=== PATIENT | female | born 1945 | race Caucasian/White ===

== ENCOUNTER 2022-04-30 14:33 | Inpatient (IN) ==
[2022-04-30 16:54] LABS: Basophils % 0.5 % (0.0-0.8); Eosinophils % 2.1 % (0.00-10.9); Hematocrit 25.2 VOL% (35.7-47.0); Immature Granulocytes % 1.6 %; Immature Granulocytes Absolute 0.03 #; Lymphocytes # 0.6 10*3/uL (1.4-4.0); Mean Corpuscular HGB Conc 31.7 GM/DL (32-36); Mean Corpuscular Volume 96.2 FL (87-102); Mean Platelet Volume 9.9 FL (9.6-12.0); Monocytes # 0.2 10*3/uL (0.11-0.8); Neutrophils % 56.8 % (38.7-73.9); Platelet Count 54 T/CUMM (130-400); Red Blood Count 2.62 MC/CUMM (3.8-5.5); White Blood Count 1.9 T/CUMM (4-12)
[2022-04-30 17:16] LABS: INR 1.1; PT Patient Result 11.8 SECS (10.1-12.1)
[2022-04-30] MEDS ORDERED: SIMETHICONE CHEW 125 MG TABLET PO PRN (17:18)
[2022-04-30] MEDS ORDERED: LACTULOSE 20 GM/30 ML UDCUP PO PRN (17:18)
[2022-04-30] MEDS ORDERED: ACETAMINOPHEN 325 MG TABLET PO PRN (17:18)
[2022-04-30] MEDS ORDERED: ALBUTEROL 2.5 MG/3 ML NEB RESP TX PRN (17:18)
[2022-04-30] MEDS ORDERED: ONDANSETRON 4 MG/2 ML VIAL IV PRN (17:18)
[2022-04-30] MEDS ORDERED: CALCIUM CARBONATE CHEW 500 MG TABLET PO PRN (17:18)
[2022-04-30] MEDS ORDERED: ALUMINUM/MAGNES/SIMETH MAX STR 30 ML UDCUP PO PRN (17:18)
[2022-04-30 17:38] LABS: Albumin 2.5 G/DL (3.4-5.0); Bilirubin,Total 1.8 MG/DL (0.20-1.00); Calcium 8.5 MG/DL (8.5-10.1); Total Protein 5.9 G/DL (6.4-8.2)
[2022-04-30 17:44] LABS: % Iron Saturation 34.3 % (18-50)
[2022-04-30 18:09] LABS: Folate 12.14 NG/ML (5.38-24.0)
[2022-04-30 18:28] LABS: Band Neutrophils 1 % (0-10); Eosinophils 1 % (0-10); Lymphocytes 35 % (20-55); Total Cells Counted 100
[2022-04-30 18:30] LABS: Anisocytosis Slight
[2022-04-30 18:31] LABS: Platelet Estimate Decreased
[2022-04-30] MEDS ORDERED: OCTREOTIDE 100 MCG/ML SYRINGE IV STA (18:33)
[2022-04-30 19:55] LABS: Hematocrit 24.3 VOL% (35.7-47.0); Hemoglobin 7.5 GM/DL (12.0-16.0)
[2022-04-30] MEDS: PANTOPRAZOLE 40 MG VIAL IV SCH (20:31)
[2022-04-30] MEDS: OCTREOTIDE 500 MCG in SODIUM CHLORIDE 0.9% 100 ML IV SCH (20:31)
[2022-04-30] MEDS: SODIUM CHLORIDE 0.9% 1,000 ML IV SCH (20:31)
[2022-05-01 00:49] LABS: Hematocrit 23.1 VOL% (35.7-47.0); Hemoglobin 7.1 GM/DL (12.0-16.0)
[2022-05-01 05:58] LABS: Hematocrit 23.3 VOL% (35.7-47.0); Hemoglobin 6.9 GM/DL (12.0-16.0)
[2022-05-01] MEDS ORDERED: SODIUM CHLORIDE 0.9% 1,000 ML IV PRN (06:04)
[2022-05-01] MEDS: OCTREOTIDE 500 MCG in SODIUM CHLORIDE 0.9% 100 ML IV SCH ×2 (06:24→16:20)
[2022-05-01 06:28] LABS: Calcium 8.2 MG/DL (8.5-10.1); Osmolality,Calculated 297.7 MOS/KG (273-304); Potassium 5.3 MMOL/L (3.5-5.1); Risk Ratio 3.11; Thyroid Stimulating Hormone 0.068 uIU/ml (0.358-3.74); VLDL Cholesterol 15.8 MG/DL
[2022-05-01 07:31] LABS: Free T4 (Free Thyroxine) 1.9 NG/DL (0.76-1.46)
[2022-05-01 07:54] LABS: Hepatitis B Core IgM Quant 0.05 Index; Hepatitis B Surface Ag Quant < 0.10 Index; Hepatitis B Surface Ag Result Non-Reactive (NonReactive); Hepatitis C Virus Ab Quant < 0.02 Index; Hepatitis C Virus Ab Result Non-Reactive (NonReactive)
[2022-05-01 07:55] LABS: AFP Tumor < 2.2 NG/ML (0-8)
[2022-05-01] MEDS ORDERED: PANTOPRAZOLE 40 MG VIAL IV SCH (09:00)
[2022-05-01] MEDS: SODIUM ZIRCONIUM CYCLOSILICATE 10 GM PACK PO SCH ×3 (09:58→21:30)
[2022-05-01] MEDS: LACTULOSE 20 GM/30 ML UDCUP PO SCH ×3 (09:58→21:29)
[2022-05-01] MEDS: PANTOPRAZOLE 40 MG VIAL IV SCH ×2 (10:03→21:30)
[2022-05-01] MEDS: SODIUM CHLORIDE 0.9% 1,000 ML IV SCH ×2 (10:04→23:30)
[2022-05-01] MEDS: ursodioL 300 MG CAPSULE PO SCH ×2 (16:15→21:33)
[2022-05-01] MEDS: carvediloL 6.25 MG TABLET PO SCH (16:29)
[2022-05-01 17:32] LABS: Hematocrit 31.1 VOL% (35.7-47.0); Hemoglobin 9.8 GM/DL (12.0-16.0)
[2022-05-01] MEDS: FLUTICASONE/SALMETEROL 250-50 DISKUS 14 DOSE INH SCH (21:30)
[2022-05-02] MEDS: OCTREOTIDE 500 MCG in SODIUM CHLORIDE 0.9% 100 ML IV SCH ×2 (01:54→15:42)
[2022-05-02 05:07] LABS: INR 1.2; PT Patient Result 12.8 SECS (10.1-12.1); Partial Thromboplastin Time 28.3 SECS (23.7-32.9)
[2022-05-02 05:27] LABS: Calcium 7.9 MG/DL (8.5-10.1); Osmolality,Calculated 294.8 MOS/KG (273-304); Potassium 4.5 MMOL/L (3.5-5.1)
[2022-05-02] MEDS: LEVOTHYROXINE 100 MCG TABLET PO SCH (07:10)
[2022-05-02 07:36] LABS: Basophils % 0.9 % (0.0-0.8); Eosinophils # 0.1 10*3/uL (0.0-0.87); Eosinophils % 3.1 % (0.00-10.9); Hematocrit 28.5 VOL% (35.7-47.0); Hemoglobin 8.9 GM/DL (12.0-16.0); Immature Granulocytes % 0.4 %; Immature Granulocytes Absolute 0.01 #; Lymphocytes # 0.7 10*3/uL (1.4-4.0); Lymphocytes % 28.9 % (21.3-54.2); Mean Corpuscular HGB Conc 31.2 GM/DL (32-36); Mean Corpuscular Volume 96.3 FL (87-102); Mean Platelet Volume 10.4 FL (9.6-12.0); Monocytes # 0.2 10*3/uL (0.11-0.8); Monocytes % 8.9 % (1.7-12.7); Neutrophils % 57.8 % (38.7-73.9); Red Blood Count 2.96 MC/CUMM (3.8-5.5); Red Cell Distribution Width 19.9 % (9.3-17.3); White Blood Count 2.3 T/CUMM (4-12)
[2022-05-02 07:37] LABS: Platelet Count 59 T/CUMM (130-400)
[2022-05-02 08:10] LABS: Anisocytosis 2+; Burr Cells Few; Platelet Estimate Decreased
[2022-05-02] MEDS: SODIUM CHLORIDE 0.9% 1,000 ML IV SCH (08:59)
[2022-05-02] MEDS ORDERED: LEVOTHYROXINE 112 MCG TABLET PO SCH (09:00)
[2022-05-02] MEDS ORDERED: ALBUTEROL 2.5 MG/3 ML NEB RESP TX ONE (09:28)
[2022-05-02] MEDS: LACTULOSE 20 GM/30 ML UDCUP PO SCH ×3 (10:24→22:21)
[2022-05-02] MEDS: carvediloL 6.25 MG TABLET PO SCH (10:29)
[2022-05-02] MEDS: SODIUM ZIRCONIUM CYCLOSILICATE 10 GM PACK PO SCH ×4 (10:29→22:21)
[2022-05-02] MEDS: ursodioL 300 MG CAPSULE PO SCH ×4 (10:29→22:20)
[2022-05-02] MEDS: CHOLECALCIFEROL 5,000 UNIT TABLET PO SCH (10:29)
[2022-05-02] MEDS: FLUTICASONE/SALMETEROL 250-50 DISKUS 14 DOSE INH SCH ×2 (10:40→22:20)
[2022-05-02] MEDS: PANTOPRAZOLE 40 MG VIAL IV SCH ×2 (10:41→22:21)
[2022-05-02] MEDS ORDERED: LIDOCAINE 2% 5 ML VIAL ONE (13:11)
[2022-05-02] MEDS ORDERED: propofoL 200 MG/20 ML VIAL IV ONE (13:11)
[2022-05-02] MEDS ORDERED: SODIUM CHLORIDE 0.9% 1,000 ML IV PRN (13:35)
[2022-05-02] MEDS ORDERED: HYDROmorphone 1 MG/1 ML SYRINGE IV PRN (13:42)
[2022-05-03] MEDS: OCTREOTIDE 500 MCG in SODIUM CHLORIDE 0.9% 100 ML IV SCH ×2 (01:51→09:36)
[2022-05-03] MEDS: SODIUM CHLORIDE 0.9% 1,000 ML IV SCH ×2 (02:08→09:36)
[2022-05-03 06:05] LABS: Basophils % 0.8 % (0.0-0.8); Eosinophils # 0.1 10*3/uL (0.0-0.87); Eosinophils % 3.3 % (0.00-10.9); Hematocrit 30.2 VOL% (35.7-47.0); Hemoglobin 9.3 GM/DL (12.0-16.0); Immature Granulocytes % 0.4 %; Immature Granulocytes Absolute 0.01 #; Lymphocytes # 0.6 10*3/uL (1.4-4.0); Lymphocytes % 26.1 % (21.3-54.2); Mean Corpuscular HGB Conc 30.8 GM/DL (32-36); Mean Corpuscular Volume 96.8 FL (87-102); Mean Platelet Volume 10.2 FL (9.6-12.0); Monocytes # 0.3 10*3/uL (0.11-0.8); Monocytes % 10.4 % (1.7-12.7); Red Blood Count 3.12 MC/CUMM (3.8-5.5); Red Cell Distribution Width 19.4 % (9.3-17.3); White Blood Count 2.4 T/CUMM (4-12)
[2022-05-03 06:06] LABS: Platelet Count 66 T/CUMM (130-400)
[2022-05-03 06:17] LABS: Osmolality,Calculated 294.7 MOS/KG (273-304); Potassium 4.2 MMOL/L (3.5-5.1)
[2022-05-03 06:28] LABS: Hypochromia Slight; Platelet Estimate Decreased
[2022-05-03] MEDS: LEVOTHYROXINE 100 MCG TABLET PO SCH (06:39)
[2022-05-03 07:23] VITALS: BP 133/60
[2022-05-03] MEDS: PANTOPRAZOLE 40 MG VIAL IV SCH (08:29)
[2022-05-03] MEDS: LACTULOSE 20 GM/30 ML UDCUP PO SCH (08:29)
[2022-05-03] MEDS: CHOLECALCIFEROL 5,000 UNIT TABLET PO SCH (08:29)
[2022-05-03] MEDS: ursodioL 300 MG CAPSULE PO SCH (08:30)
[2022-05-03] MEDS: FLUTICASONE/SALMETEROL 250-50 DISKUS 14 DOSE INH SCH (08:30)
== END 2022-05-03 11:00 | disposition home or self-care (01) | DRG 369 ==
LOC: N.ED 14:33 → N.EDINP 14:33 → SUATTDRO 17:18 → N.2E 18:47 → SUATTDRO 05-01 08:00
PROVIDERS: ADMIT Hospitalist; ATTEND Hospitalist
PROC: EGDWEBL (ICD-10-PCS; 2022-05-02 07:05)